=== PATIENT | male | born 1990 | race Caucasian/White ===

== ENCOUNTER 2017-09-29 20:58 | Emergency (ER) | payer SELFPAY ==
[2017-09-29 21:08] VITALS: O2SAT 98
--- NOTE | 2017-09-29 23:30 | C.PDOC ---
History Of Present Illness Patient states he fell from standing onto his right side landing on his shoulder earlier today. He is now c/o pain with movement of his right arm extending into his neck and down the arm. He has no weakness or tingling. There is no obvious deformity. Time Seen by Provider: 09/29/17 22:57 Chief Complaint (Nursing): Upper Extremity Problem/Injury History Per: Patient History/Exam Limitations: no limitations Current Symptoms Are (Timing): Still Present Quality: Sharp, "Pain" Exacerbating Factor(s): Movement Past Medical History Vital Signs: Last Vital Signs Temp 98.1 F 09/29/17 21:03 Pulse 106 H 09/29/17 21:03 Resp 16 09/29/17 21:03 BP 129/82 09/29/17 21:03 Pulse Ox 98 09/29/17 21:03 - Medical History PMH: No Chronic Diseases Surgical History: No Surg Hx - [facility] Procedures TETANUS TOXOID ADMINIST (02/08/15) Family History: States: No Known Family Hx - Social History Hx Tobacco Use: Yes ("ON WEEKENDS") Hx Alcohol Use: Yes (WEEKENDS) Hx Substance Use: No - Immunization History Hx Tetanus Toxoid Vaccination: No Hx Influenza Vaccination: No Hx Pneumococcal Vaccination: No Review Of Systems Cardiovascular: Negative for: Chest Pain, Palpitations Respiratory: Negative for: Cough, Shortness of Breath Gastrointestinal: Negative for: Nausea, Vomiting, Abdominal Pain Musculoskeletal: Positive for: Neck Pain, Shoulder Pain, Arm Pain. Negative for : Back Pain, Hand Pain Neurological: Negative for: Weakness, Numbness, Incoordination, Headache, Dizziness Physical Exam - Physical Exam Appears: Well, No Acute Distress Skin: Normal Color, Warm, Dry, No Ecchymosis Head: Atraumatic, Normacephalic, Tenderness Eye(s): bilateral: Normal Inspection Oral Mucosa: Moist Neck: Normal, Normal ROM, No Midline Cervical Tenderness, No Paracervical Tenderness, No Step Off Deformity, Supple Chest: Symmetrical Cardiovascular: Rhythm Regular Respiratory: Normal Breath Sounds Extremity: Normal ROM, Tenderness (over the right mid clavicle), No Swelling Pulses: Left Carotid: Normal, Right Carotid: Normal DTR: Bicep (R): 1+, Bicep (L): 1+ Neurological/Psych: Oriented x3, Normal Speech, Normal Cognition, Normal Cranial Nerves ED Course And Treatment O2 Sat by Pulse Oximetry: 98 - Other Rad C spine and Rt clavicle X-Ray: Interpreted by Me, Viewed By Me Interpretation: no evidence of fracture, normal soft tissues Reevaluation Time: 23:34 Reassessment Condition: Improved Disposition Counseled Patient/Family Regarding: Studies Performed, Diagnosis, Need For Followup, Rx Given - Disposition Referrals: [facility] [Outside] Disposition: HOME/ ROUTINE Disposition Time: 23:35 Condition: STABLE Prescriptions: Tramadol HCl [Ultram] 50 mg PO QID PRN #14 tab PRN Reason: Pain, Severe (8-10) Instructions: Contusion (DC), Shoulder Sprain Forms: [employer] (Kinyarwanda) Print Language: BELARUSIAN - Clinical Impression Clinical Impression: Contusion, Shoulder sprain
[2017-09-29 23:58] VITALS: BP 156/86; PULSE 78; RESP 18; TEMP 98
--- NOTE | 2017-09-30 09:12 | RAD ---
PROCEDURE: Radiographs of the right clavicle. HISTORY: injury COMPARISON: None. FINDINGS: RIGHT CLAVICLE: No fracture or focal lesion. JOINTS: Right acromioclavicular and glenohumeral joints are grossly unremarkable. SOFT TISSUES: Grossly unremarkable. OTHER FINDINGS: None. IMPRESSION: Normal radiographs of the right clavicle. Please note: No preliminary interpretation of this examination rendered by emergency department personnel
--- NOTE | 2017-09-30 09:43 | RAD ---
PROCEDURE: Cervical Spine Radiographs. HISTORY: Pain. COMPARISON: None. FINDINGS: BONES: Alignment maintained. No fracture. Dens Intact. Visualization of the C 7 vertebral body and posterior elements is limited -these are obscured by a the clavicles and shoulders on the lateral view. History states pain. I am not aware of any trauma . No compression or old gross lucencies are appreciated on the frontal view of the C7 vertebral body. A minimal developmental variant - right C7 cervical rib -is possible DISC SPACES: Normal. SOFT TISSUES: Normal. No prevertebral soft tissue swelling. OTHER FINDINGS: None. IMPRESSION: Limited visualization of C7 as noted above. No fractures or gross malalignment appreciated
== END 2017-09-29 23:50 | disposition home or self-care (01) ==
LOC: C.ER 20:58
DX: S43.401A Unspecified sprain of right shoulder joint, initial encounter (principal); S40.011A Contusion of right shoulder, initial encounter; W18.30XA Fall on same level, unspecified, initial encounter